=== PATIENT | female | born 1955 | race Caucasian/White ===

== ENCOUNTER 2018-07-20 15:11 | Emergency (ER) | payer MEDICAID ==
[~2018-07-20] VITALS: Ht 162.6 cm; Wt 74.0 kg
[2018-07-20 15:26] VITALS: BP 115/73
== END 2018-07-20 23:35 | disposition left against medical advice (07) ==
LOC: ER 20:29
DX: R42 Dizziness and giddiness (principal); Z53.21 Procedure and treatment not carried out due to patient leaving prior to being seen by health care provider